=== PATIENT | female | born 1975 | race Two or more races ===

== ENCOUNTER 2025-01-26 16:04 | Inpatient (IN) | payer MEDICAID ==
[~2025-01-26] VITALS: Ht 160 cm; Wt 102.3 kg
[2025-01-26 16:45] LABS: Hematocrit 40.5 % (36.0-46.0); Hemoglobin 14.2 g/dL (12.2-16.2); Mean Corpuscular Hemoglobin 33.2 pg (28.0-32.0); Mean Corpuscular Volume 94.4 fL (80.0-100.0); Nucleated Red Blood Cells % 0.1 %
--- NOTE | 2025-01-26 16:52 | ED.PDOC ---
SOB-HPI HPI Comments 49-year-old female who presents to the ED with c/c of shortness of breath Patient was patient denies shortness of breath for the past 2 weeks Patient states she has been having difficulty difficulty laying down in her bed and has been unable to get a full night's sleep PCP saw PCP earlier today and state that she was referred to the ED for evaluation for CHF Patient of the ED states that she has been a type into see vaccines solutions specialist with state due to insurance problems she was unable disease specialist Patient in the ED had otherwise stable vitals Past medical history: Denies Past surgical history: Cholecystectomy, C-sections x5, knee surgery Medications: Denies Allergies: Acetaminophen, hydrocodone, penicillins Social history: denies ETOH denies tobacco use denies drug use REUM: SOB, PIT EDEMA 05/03 B/L ABNORMAL EKG HPI: Poor Historian. REVIEW OF SYSTEMS: CONSTITUTIONAL: Denies acute: fever, diaphoresis, chills, HEAD: Denies acute: headache, photophobia Eyes: Denies acute: Double vision, vision loss, eye pain, eye discharge. EARS: Denies acute: tinnitus, hearing loss, ear discharge, ear pain, THROAT: Denies acute: sore throat, swelling, difficulty swallowing , pain with swallowing, change in voice. NECK: Denies acute: neck pain, neck swelling, stiff neck. HEART: Denies acute : chest pain, palpitations, LUNGS: Denies acute: , wheezing, cough, hemoptysis ABDOMEN: Denies acute: abdominal pain, Nausea, Vomiting, diarrhea, melena , hematemesis, hematochezia SKIN: Denies acute: rash, redness, lesions, itchiness. EXTREMITIES: Denies acute: calf pain, numbness, tingling, weakness, denies pain in extremity. Denies acute: Low back pain. Neuro: Denies acute: focal neurological deficit, motor or sensory focal neurological deficit, tremors, seizure like activity, confusion, dizziness, change in mental status, loss of bowel or bladder function, cauda equina like symptoms. : Denies acute: dysuria, hematuria, flank pain, increase in urinary frequency. PSYCH: Denies acute: hallucination, suicidal ideation, homicidal ideation. FEMALE: Denies acute: abnormal vaginal bleeding, foul odor, unusual discharge. PHYSICAL EXAM: General: -----mild---acute distress, awake and alert. Head: normocephalic, atraumatic. Neck: supple, trachea is midline, no swelling. Throat: Normal phonation. Eyes:, no erythema, no purulent discharge, no proptosis, no icterus. Heart: regular rate, regular rhythm, no significant murmur appreciated. Lungs: no apparent respiratory distress, Able to speak in full sentences. No wheezing, no rhonchi, no crackles. No stridors Clear to auscultation bilaterally. Abdomen: non tender to palpation, non distended, soft, no guarding, no rebound, + bowel sounds. Neuro: Awake, Alert, oriented to name, self, situation, follows commands GCS=15. Speech is normal. Skin: no petechia, no purpura, no cyanosis, non-pale, not jaundice. Lower extremities: --trace bilateral- Pitting edema no deformity, no focal swelling, no calf TTP. Makes eye contact. moves all four extremities. Face: no apparent facial droop. Ambulating in the ED independently. ED COURSE: DISCLAIMER: This medical document was created using an electronic medical record system with voice recognition software and computerized dictation system. Although this document has been carefully reviewed, there might still be some phonetic and typographical errors. Occasional wrong-word or "sound-alike" substitutions may have occurred due to the inherent limitations of voice recognition software. These areas are purely typographical due to imperfections of the software programs and do not reflect any compromise in the patient's medical care. Please read the chart carefully and recognize, using context, where these substitutions have occurred. Chief Complaint: Shortness of Breath Time Seen by MD: 17:33 Reviewed notes: Medications, Allergies Information Source: Patient Mode of Arrival: Ambulatory Past Medical History PAST MEDICAL HISTORY: Denies Surgical History: Denies all surgeries EKG EKG : Pulse Rate (adult): 94 [place]: Normal Cardiac Rhythm: NSR Block: None Hypertrophy: None ST: Normal Comments T-wave inversions noted in leads 2 3 AVF V4 V5 V6 Was a procedure done? Was a procedure done?: No Differential Dx Differential Diagnosis: Other (DDx include ACS, unstable angina, anxiety, PE, pneumothroax, neoplasm, cardiac ischemia, COPD, asthma, CHF, pleural effusion, tobacco abuse, pneumonia, hypoxia, hypercapnia, anemia., infection/sepsis., pulmonary edema. Asthma, Cardiac tamponade, infection.) X-Ray, Labs, Meds, VS Vital Signs Date Time Temp Pulse Resp B/P (MAP) Pulse Ox O2 Delivery O2 Flow Rate FiO2 01/26/25 20:11 97.6 90 18 146/87 (106) 97 97.6 01/26/25 20:11 90 18 97 Room Air 01/26/25 17:49 94 01/26/25 16:16 94 01/26/25 16:05 98.5 99 16 118/80 98 98.5 Lab Test 01/26/25 18:06 01/26/25 17:38 01/26/25 16:31 Range/Units Troponin I High Sensitivity 3 L 3 L </=34 ng/L Blood Gas Specimen Type Arterial Blood Gas Sample Site Right radial Blood Gas Patient Temperature 37.0 Arterial Blood Date Drawn [id number] Arterial Blood pH 7.464 H 7.350-7.450 Arterial Blood Partial Pressure CO2 36.2 32.0-45.0 mmHg Arterial Blood Partial Pressure O2 76.1 L 83.0-108.0 mmHg Arterial Blood HCO3 25.4 21.0-28.0 mmol/L Arterial Blood Oxygen Saturation 95.9 94.0-98.0 % Arterial Blood Base Excess 1.9 -2.0-3.0 mmol/L Arterial Blood Oxyhemoglobin 94.7 94.0-98.0 % Arterial Blood Carboxyhemoglobin 0.8 0.5-1.5 % Arterial Blood Methemoglobin 0.4 0.0-1.5 % [facility] Test Modified Blood Gas Total Hemoglobin 14.70 12.0-16.0 g/dL Blood Gas Modality Room air FiO2 % 21.0 White Blood Count 8.5 4.4-10.8 10^3/uL Red Blood Count 4.29 4.0-5.20 10^6/uL Hemoglobin 14.2 12.2-16.2 g/dL Hematocrit 40.5 36.0-46.0 % Mean Corpuscular Volume 94.4 80.0-100.0 fL Mean Corpuscular Hemoglobin 33.2 H 28.0-32.0 pg Mean Corpuscular Hemoglobin Concent 35.2 32.0-36.0 g/dL Red Cell Distribution Width 14.0 11.8-14.3 % Platelet Count 371 140-450 10^3/uL Mean Platelet Volume 7.1 6.9-10.8 fL Neutrophils (%) (Auto) 60.4 37.0-80.0 % Lymphocytes (%) (Auto) 30.5 10.0-50.0 % Monocytes (%) (Auto) 5.7 0.0-12.0 % Eosinophils (%) (Auto) 2.9 0.0-7.0 % Basophils (%) (Auto) 0.5 0.0-2.0 % Neutrophils # (Auto) 5.2 1.6-8.6 10 ^3/uL Lymphocytes # (Auto) 2.6 0.4-5.4 10 ^3/uL Monocytes # (Auto) 0.5 0-1.3 10 ^3/uL Eosinophils # (Auto) 0.2 0-0.8 10 ^3/uL Basophils # (Auto) 0 0-0.2 10 ^3/uL Nucleated Red Blood Cells 0.1 % D-Dimer, Quantitative < 0.19 0.0-0.49 mg/L FEU Sodium Level 143 136-145 mmol/L Potassium Level 4.1 3.5-5.1 mmol/L Chloride Level 104 98-107 mmol/L Carbon Dioxide Level 30 20-31 mmol/L Anion Gap 9 5-15 Blood Urea Nitrogen 19 9-23 mg/dL Creatinine 0.79 0.550-1.02 mg/dL Glomerular Filtration Rate Calc 91 >90 mL/min BUN/Creatinine Ratio 24.1 H 10.0-20.0 Serum Glucose 108 H 74-106 mg/dL Calcium Level 9.4 8.7-10.4 mg/dL Total Bilirubin 0.9 0.2-1.0 mg/dL Aspartate Amino Transferase (AST) 18 13-40 U/L Alanine Aminotransferase (ALT) 28 7-40 U/L Alkaline Phosphatase 79 46-116 U/L B-Type Natriuretic Peptide 0.75 0-100 pg/mL Total Protein 7.2 5.7-8.2 g/dL Albumin 4.7 3.2-4.8 g/dL [facility] [id number] [facility] [address] Ph: [phone] DIAGNOSTIC IMAGING Diagnostic Imaging Report : [id number] Signed PATIENT: CARITO POLLOCK ACCT: [id number] UNIT: [id number] : 1975 LOC: ER ROOM / BED: / AGE / SEX: 49 / F ADM STATUS: REG ER SERVICE ORDERING PHYSICIAN: AHSAN HASTINGS DO PROCEDURE(s): CXRP - CHEST PORTABLE REASON: sob ORDER NUMBER(s): [id number], ACCESSION NUMBER(s): [id number] CHEST RADIOGRAPH Indication: sob Technique: Single frontal view of the chest was obtained Comparison: None FINDINGS: Lines and Tubes: None Lungs: No focal consolidation. Pleura: No effusion. No pneumothorax. Cardiomediastinal contours: Unremarkable Bones: No acute osseous abnormality. IMPRESSION: 1. No acute cardiopulmonary disease. ATED BY: RHEA TINAJERO Jr., DO DICTATED DATE/TIME: 01/26/251717 SIGNED BY: RHEA TINAJERO Jr., SIGNED DATE/TIME: 01/26/251717 CC: Time of 1ST Reevaluation: 20:38 Reevaluation 1ST: Improved Patient Education/Counseling: Diagnosis, Treatment Family Education/Counseling: No Family Present Comments MDM: patient presented with the above HPI.---dyspnea---workup was initiated. patient was found with the above mentioned diagnosis. the following medications were ordered: please refer to order lists of meds and tests obtained by myself Dr. Hastings. Patient ED course and VS have been stabilized. Patient has been reassessed in the ED and remained in a stable condition. Pertinent incidental findings were discussed with the patient and/or family. Patient/family voices understanding and is agreeable with plan. Patient has been observed in the ED adequate length of time to insure improvement/stability. Escalation of care considered: Consideration of escalation to observation or admission Patient was ADMITTED to the medicine team for further evaluation and treatment of their presentation. All the reports of any imaging studies that were ordered by myself were reviewed by myself. SEPSIS Sepsis Screen Date sepsis recognized/suspect: Jan 26, 2025 Time Sepsis recognized/suspect: 1607 Recent Procedure: No On Antibiotic Therapy: No Respiratory Rate >20: No Heart Rate >90: Yes Temp<36 C (96.8 F) or >38.3 C: No SBP <90 or MAP <65 mmHG: No New Acute Mental Status Change: No Is the patient on CPAP, BIPAP,: No Physician Orders Laboratory Technical Specialist (01/26/25 ) Chest Portable (01/26/25 16:18) Troponin-I Hs (01/26/25 19:18) Electrocardigram (01/26/25 16:23) Abg W/ Co-Ox (01/26/25 17:25) Vital Signs Date Time Temp Pulse Resp B/P (MAP) Pulse Ox O2 Delivery O2 Flow Rate FiO2 01/26/25 20:11 97.6 90 18 146/87 (106) 97 97.6 01/26/25 20:11 90 18 97 Room Air 01/26/25 17:49 94 01/26/25 16:16 94 01/26/25 16:05 98.5 99 16 118/80 98 98.5 Laboratory Tests Test 01/26/25 16:31 White Blood Count 8.5 10^3/uL (4.4-10.8) Departure 1 Departure Time of Disposition: 17:35 Impression: Primary Impression: Dyspnea Additional Impressions: Abnormal EKG Hypoxemia Disposition: ADMITTED INPATIENT Admit to: [facility] Condition: Guarded Discharged With: Self Critical Care Note Critical Care Time?: No Heart Score Heart Score: Heart Score Response (Comments) Value History Slightly Suspicious [address]-Deviation 2 Age 45-64 1 Risk Factors No known risk factors 0 Troponin Normal limit 0 Total 3 I personally scribed for AHSAN HASTINGS DO ([email or web address]) on 01/26/25 at 16:52. Electronically submitted by Aurea Lr ([facility] I personally scribed for AHSAN HASTINGS DO ([email or web address]) on 01/26/25 at 17:49. Electronically submitted by Aurea Lr ([facility]). AHSAN HASTINGS DO Jan 26, 2025 16:52
[2025-01-26 17:03] LABS: Alanine Aminotransferase 28 U/L (7-40); Albumin 4.7 g/dL (3.2-4.8); Alkaline Phosphatase 79 U/L (46-116); Anion Gap 9 (5-15); BUN/Creatinine Ratio 24.1 (10.0-20.0); Bilirubin, Total 0.9 mg/dL (0.2-1.0); Blood Urea Nitrogen 19 mg/dL (9-23); Calcium 9.4 mg/dL (8.7-10.4); Carbon Dioxide 30 mmol/L (20-31); Chloride 104 mmol/L (98-107); Potassium 4.1 mmol/L (3.5-5.1); Sodium 143 mmol/L (136-145); Total Protein 7.2 g/dL (5.7-8.2)
[2025-01-26 17:05] LABS: Glucose 108 mg/dL (74-106)
--- NOTE | 2025-01-26 17:20 | DVH ---
CHEST RADIOGRAPH Indication: sob Technique: Single frontal view of the chest was obtained Comparison: None FINDINGS: Lines and Tubes: None Lungs: No focal consolidation. Pleura: No effusion. No pneumothorax. Cardiomediastinal contours: Unremarkable Bones: No acute osseous abnormality. IMPRESSION: 1. No acute cardiopulmonary disease.
[2025-01-26 17:45] LABS: Base Excess 1.9 mmol/L (-2.0-3.0)
[2025-01-26 21:49] LABS: Lipase 28.0 U/L (12-53); Magnesium 2.2 mg/dL (1.6-2.6)
[2025-01-26 21:58] LABS: INR 0.95 (0.9-1.15); Partial Thromboplastin Time 26.4 SEC (24.5-34.5); Prothrombin Time 10.1 sec (9.3-11.8)
--- NOTE | 2025-01-26 23:27 | DVHHPRES ---
History of Present Illness Resident Creating Document: ROSALES SNYDER RESIDENT History of Present Illness This is a 49-year-old female with past medical history of gestational diabetes and heart failure 20 years back, presented to the ER with chief complain of shortness of breath. Patient reported difficulty in breathing since last 3 weeks, which increases on lying down and somewhat relieved on sitting up. She also complains of chest tightness since last 1 month, described as substernal and constant. She complains of associated difficulty in sleeping and nausea. Patient also reported diarrhea, since last 1 week, she had 8-9 episodes of bowel movements daily, foul-smelling stool, no blood seen. She also complained of abdominal distention, fullness and loss of appetite. Denies abdominal pain, fever, travel outside country, eating from food truck. PMHx: Gestational diabetes and questionable peripartum heart failure PSHx: 5 sections, cholecystectomy, hysterectomy due to endometriosis Social history: Occasional alcohol use. Methamphetamine use, reportedly quit 2 months ago. Lives in house with mother. Full code. Next of kin mother Home medication: Hydroxyzine Allergic history: Penicillin, Vicodin Patient was examined on bedside today. Vitals show tachycardia. Patient is admitted for further evaluation and management. Review of Systems Constitutional: Yes: Chills Respiratory: Shortness of breath, SOB with excertion Gastrointestinal: Nausea, Diarrhea Allergies: Coded Allergies: Acetaminophen (Verified Allergy, Unknown, 01/26/25) Hydrocodone (Verified Allergy, Unknown, 01/26/25) Penicillins (Verified Allergy, Unknown, 01/26/25) Exam Vital Signs Vital Signs Date Time Temp Pulse Resp B/P (MAP) Pulse Ox O2 Delivery O2 Flow Rate FiO2 01/26/25 20:11 97.6 90 18 146/87 (106) 97 97.6 01/26/25 20:11 Room Air Exam General: Patient alert and oriented in person, place and time. Patient following commands. HEENT: Normocephalic, atraumatic, moist mucous membranes Respiratory/pulmonary: Distant breath sounds, no crackles or wheeze heard Cardiovascular: S1, S2, S3 heard with no associated murmurs Abdomen: Mild abdominal distention, without tenderness. Extremities: There is no peripheral edema present at the lower extremities. Peripheral Pulses: 3+ Radial (R). 3+ Radial (L). 3+ Dorsalis pedis (R). 3+ Dorsalis pedis(L) Skin: No rashes or pruritus, there is no sacral edema present at this time. Neurological: Intact cranial nerves with no focal neurologic deficits Labs/Xrays Labs Test 01/26/25 20:40 01/26/25 17:38 01/26/25 16:31 Range/Units Prothrombin Time 10.1 9.3-11.8 sec Prothrombin Time INR 0.95 0.9-1.15 Activated Partial Thromboplast Time 26.4 24.5-34.5 SEC Troponin I High Sensitivity 3 L </=34 ng/L Blood Gas Specimen Type Arterial Blood Gas Sample Site Right radial Blood Gas Patient Temperature 37.0 Arterial Blood Date Drawn [id number] Arterial Blood pH 7.464 H 7.350-7.450 Arterial Blood Partial Pressure CO2 36.2 32.0-45.0 mmHg Arterial Blood Partial Pressure O2 76.1 L 83.0-108.0 mmHg Arterial Blood HCO3 25.4 21.0-28.0 mmol/L Arterial Blood Oxygen Saturation 95.9 94.0-98.0 % Arterial Blood Base Excess 1.9 -2.0-3.0 mmol/L Arterial Blood Oxyhemoglobin 94.7 94.0-98.0 % Arterial Blood Carboxyhemoglobin 0.8 0.5-1.5 % Arterial Blood Methemoglobin 0.4 0.0-1.5 % [place] Test Modified Blood Gas Total Hemoglobin 14.70 12.0-16.0 g/dL Blood Gas Modality Room air FiO2 % 21.0 White Blood Count 8.5 4.4-10.8 10^3/uL Red Blood Count 4.29 4.0-5.20 10^6/uL Hemoglobin 14.2 12.2-16.2 g/dL Hematocrit 40.5 36.0-46.0 % Mean Corpuscular Volume 94.4 80.0-100.0 fL Mean Corpuscular Hemoglobin 33.2 H 28.0-32.0 pg Mean Corpuscular Hemoglobin Concent 35.2 32.0-36.0 g/dL Red Cell Distribution Width 14.0 11.8-14.3 % Platelet Count 371 140-450 10^3/uL Mean Platelet Volume 7.1 6.9-10.8 fL Neutrophils (%) (Auto) 60.4 37.0-80.0 % Lymphocytes (%) (Auto) 30.5 10.0-50.0 % Monocytes (%) (Auto) 5.7 0.0-12.0 % Eosinophils (%) (Auto) 2.9 0.0-7.0 % Basophils (%) (Auto) 0.5 0.0-2.0 % Neutrophils # (Auto) 5.2 1.6-8.6 10 ^3/uL Lymphocytes # (Auto) 2.6 0.4-5.4 10 ^3/uL Monocytes # (Auto) 0.5 0-1.3 10 ^3/uL Eosinophils # (Auto) 0.2 0-0.8 10 ^3/uL Basophils # (Auto) 0 0-0.2 10 ^3/uL Nucleated Red Blood Cells 0.1 % D-Dimer, Quantitative < 0.19 0.0-0.49 mg/L FEU Sodium Level 143 136-145 mmol/L Potassium Level 4.1 3.5-5.1 mmol/L Chloride Level 104 98-107 mmol/L Carbon Dioxide Level 30 20-31 mmol/L Anion Gap 9 5-15 Blood Urea Nitrogen 19 9-23 mg/dL Creatinine 0.79 0.550-1.02 mg/dL Glomerular Filtration Rate Calc 91 >90 mL/min BUN/Creatinine Ratio 24.1 H 10.0-20.0 Serum Glucose 108 H 74-106 mg/dL Hemoglobin A1c 5.6 <5.7 % A1C Calcium Level 9.4 8.7-10.4 mg/dL Phosphorus Level 3.6 2.4-5.1 mg/dL Magnesium Level 2.2 1.6-2.6 mg/dL Total Bilirubin 0.9 0.2-1.0 mg/dL Aspartate Amino Transferase (AST) 18 13-40 U/L Alanine Aminotransferase (ALT) 28 7-40 U/L Alkaline Phosphatase 79 46-116 U/L C-Reactive Protein High Sensitivity 1.24 H <1.0 mg/dL B-Type Natriuretic Peptide 0.75 0-100 pg/mL Total Protein 7.2 5.7-8.2 g/dL Albumin 4.7 3.2-4.8 g/dL Lipase 28 12-53 U/L Vitamin B12 Level 269 211-911 pg/mL Vitamin D 25-Hydroxy 23.6 L 30.0-100 ng/mL Thyroid Stimulating Hormone (TSH) 3.98 0.55-4.78 uIU/mL SEPSIS Sepsis Screen Date sepsis recognized/suspect: Jan 26, 2025 Time Sepsis recognized/suspect: 1606 Recent Procedure: No On Antibiotic Therapy: No Respiratory Rate >20: No Heart Rate >90: Yes Temp<36 C (96.8 F) or >38.3 C: No SBP <90 or MAP <65 mmHG: No New Acute Mental Status Change: No Is the patient on CPAP, BIPAP,: No Physician Orders Home Attendant (01/26/25 ) Chest Portable (01/26/25 16:18) Electrocardigram (01/26/25 16:23) Abg W/ Co-Ox (01/26/25 17:25) Drug Screen (01/26/25 21:14) Urinalysis (01/26/25 21:14) Admit (01/26/25 23:19) Allergies (01/26/25 23:19) Code Status (01/26/25 23:19) Acetaminophen Tablet (Tylenol Tablet) (01/26/25 23:30) Ondansetron Hcl (Zofran) (01/26/25 23:30) Complete Blood Count (01/27/25 04:00) Comprehensive Metabolic Panel (01/27/25 04:00) Cardiac Diet-2gna,Lofat,Lochol (01/27/25 Breakfast) Echo 2d Mode Cardiac Dop (01/26/25 23:19) Condition: Serious (01/26/25 23:19) Morphine Sulfate Injection (01/26/25 23:30) Enoxaparin Sodium (Lovenox) (01/26/25 23:30) Oxygen By Nasal Cannula (01/26/25 23:19) Stat Ekg For Chest Pain (01/26/25 23:19) Notify Md Of Changes From Base (01/26/25 23:19) Straight Line Edger For 24 Hours (01/26/25 23:19) Emergency Dysrhythmia Protocol (01/26/25 23:19) Rhythm Strips Once Every Shift (01/26/25 23:19) Furosemide Injection (Lasix Injection) (01/26/25 23:30) Furosemide Injection (Lasix Injection) (01/27/25 10:00) Strict I&O (01/26/25 ) B-Type Natriuretic Peptide (01/26/25 23:19) Vital Signs Date Time Temp Pulse Resp B/P (MAP) Pulse Ox O2 Delivery O2 Flow Rate FiO2 01/26/25 20:11 97.6 90 18 146/87 (106) 97 97.6 01/26/25 20:11 90 18 97 Room Air 01/26/25 17:49 94 01/26/25 16:16 94 01/26/25 16:05 98.5 99 16 118/80 98 98.5 Laboratory Tests Test 01/26/25 16:31 White Blood Count 8.5 10^3/uL (4.4-10.8) Assessment/Plan Assessment/Plan Acute systolic vs diastolic heart failure, likely (pending LVEF) Questionable History of peripartum cardiomyopathy CXR shows no acute cardiopulmonary disease and no cardiomegaly Troponin WNL. Echo ordered BNP were WNL (may be false negative due to obesity) IV furosemide 20 mg daily; Patient is Lasix naive Acute gastroenteritis Holding off IV fluids and due to possible heart failure diagnosis Stool WBC, culture ordered IV ceftriaxone 1 g daily, IV metronidazole 500 mg 3 times daily Supportive treatment with morphine, acetaminophen, Zofran Monitor electrolytes, avoid opioids History of gestational diabetes mellitus A1c 5.6 Diabetes education Diabetic diet Hyperventilation likely due to obesity Respiratory alkalosis on ABG Morbid obesity Counseled on lifestyle and diet Monitor for JUSTINE complication, consider CPAP if needed DIET: Cardiac DVT PROPHYLAXIS: Lovenox GI PROPHYLAXIS: Protonix CODE STATUS: Goals of care discussed with patient, nurses at bedside for more than 36 minutes. Full code DISPOSITION: Telemetry Patient's status and plan discussed with the patient. Case discussed with Dr. Shaw Plan discussed with: Patient, Other (Nurses) My Orders Orders - ROSALES SNYDER RESIDENT Procedure Category Date Status Time Drug Screen LAB 01/26/25 Logged 21:14 Urinalysis LAB 01/26/25 Logged 21:14 Admit ADMIT 01/26/25 Transmitted 23:19 Allergies ANAHY 01/26/25 Transmitted 23:19 Code Status CODE 01/26/25 Transmitted 23:19 Acetaminophen Tablet PHA 01/26/25 Logged (Tylenol Tablet) 23:30 Ondansetron Hcl PHA 01/26/25 Logged (Zofran) 23:30 Complete Blood Count LAB 01/27/25 Verified 04:00 Comprehensive LAB 01/27/25 Verified Metabolic Panel 04:00 Cardiac DIET 01/27/25 Transmitted Diet-2gna,Lofat,Lochol Breakfast Echo 2d Mode Cardiac US 01/26/25 Logged DOP 23:19 Condition: Serious [facility] 01/26/25 Transmitted 23:19 Morphine Sulfate PHA 01/26/25 Logged Injection 23:30 Enoxaparin Sodium [facility] 01/26/25 Logged (Lovenox) 23:30 Oxygen By Nasal RT 01/26/25 Transmitted Cannula 23:19 Stat Ekg For Chest [facility] 01/26/25 Transmitted Pain 23:19 Notify Md Of Changes [facility] 01/26/25 Transmitted From Base 23:19 Straight Line Edger For [facility] 01/26/25 Transmitted 24 Hours 23:19 Emergency Dysrhythmia [facility] 01/26/25 Transmitted Protocol 23:19 Rhythm Strips Once [facility] 01/26/25 Transmitted Every Shift 23:19 Furosemide Injection [facility] 01/26/25 Logged (Lasix Injection) 23:30 Furosemide Injection [facility] 01/27/25 Logged (Lasix Injection) 10:00 Strict I&O ED NURSING 01/26/25 Transmitted B-Type Natriuretic LAB 01/26/25 Transmitted Peptide 23:19 Date of Service: Jan 26, 2025 Billing Provider: ANJUM DAY MD Common Visit Codes: 50217-[id number] INP/OBS CARE (HIGH) Secondary Visit Codes: [id number] CARE PLAN 30 MINUTES ROSALES SNYDER RESIDENT Jan 26, 2025 23:27 KERRI BOURGEOIS RESIDENT Jan 27, 2025 09:00
[2025-01-26] MEDS ORDERED: ACETAMINOPHEN 325 MG TAB PO PRN (23:30)
[2025-01-26] MEDS ORDERED: ONDANSETRON HCL 4 MG/2 ML VIAL IV PRN (23:30)
[2025-01-26] MEDS ORDERED: MORPHINE SULFATE INJ 2 MG/ml SYRG IV PRN (23:30)
[2025-01-27] VITALS (7 sets, daily range): BP systolic 115–134; BP diastolic 57–78; PULSE 71–92; RESP 16–18; TEMP 97–97.6; O2SAT 91–100
[2025-01-27] MEDS: FUROSEMIDE 20 MG/2 ML VIAL IV ONE (01:08)
[2025-01-27] MEDS: ENOXAPARIN SOD 40 MG/0.4 ML SYRINGE SC ONE (01:09)
--- NOTE | 2025-01-27 06:09 | ECG ---
[facility] Test Date: 2025-01-26 Test Time: 16:16:23 Pat Name: LAST POLLOCK Department: Room: [facility]1T A Gender: F [employer] Supervisor: GP : 1975 Requested By: AHSAN HASTINGS Order Number: [id number] Reading MD: Gurwinder Noonan Measurements Intervals Van Rate: 94 P: 21 CA: 136 QRS: 48 QRSD: 102 T: 230 QT: 307 QTc: 384 Interpretive Statements Sinus rhythm Ventricular premature complex Borderline repolarization abnormality Electronically Signed On 01-29-2025 22:06:56 PDT by Gurwinder Noonan Please click the below link to view image of tracing.
[2025-01-27] MEDS ORDERED: HYDR-3682 PO (07:34)
[2025-01-27] MEDS: FUROSEMIDE 20 MG/2 ML VIAL IV SCH (09:15)
[2025-01-27 11:13] LABS: Hematocrit 38.5 % (36.0-46.0); Hemoglobin 13.8 g/dL (12.2-16.2); Mean Corpuscular Hemoglobin 33.5 pg (28.0-32.0); Mean Corpuscular Volume 93.8 fL (80.0-100.0); Nucleated Red Blood Cells % 0.1 %
[2025-01-27 11:29] LABS: Alanine Aminotransferase 25 U/L (7-40); Albumin 4.7 g/dL (3.2-4.8); Alkaline Phosphatase 77 U/L (46-116); Anion Gap 9 (5-15); BUN/Creatinine Ratio 26.6 (10.0-20.0); Blood Urea Nitrogen 21 mg/dL (9-23); Calcium 9.6 mg/dL (8.7-10.4); Chloride 103 mmol/L (98-107); Potassium 4.1 mmol/L (3.5-5.1); Sodium 144 mmol/L (136-145); Total Protein 7.2 g/dL (5.7-8.2)
[2025-01-27 11:30] LABS: Bilirubin, Total 1.1 mg/dL (0.2-1.0)
[2025-01-27 11:35] LABS: Carbon Dioxide 32 mmol/L (20-31); Glucose 109 mg/dL (74-106)
[2025-01-27 12:02] LABS: Urine Protein, UAD Negative (Negative)
[2025-01-27 12:12] LABS: Amphetamine Screen, Urine Neg (NEGATIVE); Barbiturate Scree,Urine Neg (NEGATIVE); Benzodiazephine Screen, Urine Neg (NEGATIVE); Cannabinoid Screen, Urine Neg (NEGATIVE); Cocaine Screen, Urine Neg (NEGATIVE); Opiate Scree,Urine Neg (NEGATIVE); Phencyclidine Screen, Urine Neg (NEGATIVE)
[2025-01-27 12:43] LABS: COVID19 ANTIGEN SOFIA FIA NEGATIVE (NEGATIVE)
[2025-01-27 12:49] LABS: Triglycerides 155 mg/dL (< 150)
[2025-01-27 12:50] LABS: Cholesterol 224 mg/dL (< 200); HDL Cholesterol 60 mg/dL (40-59)
[2025-01-27] MEDS: ATORVASTATIN 20 MG TAB PO ONE (15:31)
[2025-01-27] MEDS: ERGOCALCIFEROL 50,000 UNIT(1.25MG) CAP PO SCH (15:31)
--- NOTE | 2025-01-27 17:26 | DVHPN2 ---
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 Patient reported difficulty in breathing since last 3 weeks, which increases on lying down and somewhat relieved on sitting up. She also complains of chest tightness since last 1 month, described as substernal and constant. She complains of associated difficulty in sleeping and nausea. Patient also reported diarrhea, since last 1 week, she had 8-9 episodes of bowel movements daily, foul-smelling stool, no blood seen. She also complained of abdominal distention, fullness and loss of appetite. Denies abdominal pain, fever, travel outside country, eating from food truck. patient also reported that she has been having difficulty with the sleeping and anxiety issues. Cardiology was consulted for evaluation of structural heart disease due to given patient's history and current presenting illness. 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 Methamphetamine use, smoker and vaping, reportedly quit 2 months ago. Lives in house with mother. Full code. Next of kin mother Home meds: Hydroxyzine Allergies: Penicillin, Vicodin Objective vital signs Vital Sign Date Time Temp Pulse Resp B/P (MAP) Pulse Ox O2 Delivery O2 Flow Rate FiO2 01/27/25 09:15 110/71 01/27/25 08:47 97.0 87 17 99 97.0 01/27/25 08:00 Room Air* 0 21 Total Intake and Output 01/26/25 01/26/25 01/27/25 15:00 23:00 07:00 Intake Total 150 ml Balance 150 ml medications Current Medications Medications Dose Ordered Sig/Edelmira Route Start Time Stop Time Status Last Admin Dose Admin Ondansetron HCl 4 mg Q4HP PRN IV 01/26/25 23:30 Enoxaparin Sodium 40 mg DAILY SC 01/28/25 10:00 Furosemide 20 mg DAILY IV 01/27/25 10:00 01/27/25 09:15 20 MG Ceftriaxone Sodium 50 ml @ 100 mls/hr DAILY@09 IV 01/27/25 03:30 01/27/25 05:21 100 MLS/HR Metronidazole 100 ml @ 100 mls/hr Q8HR IV 01/27/25 04:00 01/27/25 13:42 100 MLS/HR Morphine Sulfate 2 mg Q4HPRN PRN IV 01/27/25 13:45 Atorvastatin Calcium 40 mg HS PO 01/28/25 22:00 Ergocalciferol 50,000 unit Q7D PO 01/27/25 14:30 01/27/25 15:31 50,000 UNIT Examination General: Patient alert and oriented X3 HEENT: Normocephalic, atraumatic, moist mucous membranes Respiratory: Distant breath sounds, no crackles or wheeze heard Cardiovascular: S1, S2, S3 heard with no associated murmurs Abdomen: Mild abdominal distention, without tenderness. 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 Luis): Troponins and BNP within normal limit, UDS and lipid panel is pending Echocardiogram, pending Healthy lifestyle modifications including diet and exercise Recommended outpatient follow up with the Cardiology Rest of the management as per primary team Case discussed with Dr. Luis Thank you for allowing us to care for this patient Plan discussed with: Patient MAIKEL FERNANDEZJEROME RESIDENT Jan 27, 2025 17:26
--- NOTE | 2025-01-27 17:45 | DVHCONRES ---
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 Patient reported difficulty in breathing since last 3 weeks, which increases on lying down and somewhat relieved on sitting up. She also complains of chest tightness since last 1 month, described as substernal and constant. She complains of associated difficulty in sleeping and nausea. Patient also reported diarrhea, since last 1 week, she had 8-9 episodes of bowel movements daily, foul-smelling stool, no blood seen. She also complained of abdominal distention, fullness and loss of appetite. Denies abdominal pain, fever, travel outside country, eating from food truck. patient also reported that she has been having difficulty with the sleeping and anxiety issues. Cardiology was consulted for evaluation of structural heart disease due to given patient's history and current presenting illness. 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 Methamphetamine use, smoker and vaping, reportedly quit 2 months ago. Lives in house with mother. Full code. Next of kin mother Home meds: Hydroxyzine Allergies: Penicillin, Vicodin Family History: Patient reports no known family medical history. Allergies: Coded Allergies: Acetaminophen (Verified Allergy, Unknown, 01/26/25) Hydrocodone (Verified Allergy, Unknown, 01/26/25) Penicillins (Verified Allergy, Unknown, 01/26/25) Home Meds Reported Medications Hydroxyzine Hcl (Hydroxyzine Hcl) 25 Mg Tab, 25 MG PO HSPRN PRN for ANXIETY for 30 Days, MG 01/27/25 Current Medications Current Medications Medications (Trade) Dose Ordered Sig/Edelmira Route PRN Reason Start Time Stop Time Status Last Admin Acetaminophen (Tylenol Tablet) 325 mg Q4HP PRN PO MILD PAIN (1-3 PAIN SCALE) 01/26/25 23:30 01/27/25 02:29 DC Ondansetron HCl (Zofran) 4 mg Q4HP PRN IV NAUSEA / VOMITING 01/26/25 23:30 Morphine Sulfate 2 mg Q4HPRN PRN IV SEVERE PAIN (7-10 PAIN SCALE) 01/26/25 23:30 01/27/25 13:34 DC Enoxaparin Sodium (Lovenox) 40 mg DAILY SC 01/28/25 10:00 Furosemide (Lasix Injection) 20 mg DAILY IV 01/27/25 10:00 01/27/25 09:15 Ceftriaxone Sodium 50 ml @ 100 mls/hr DAILY@09 IV 01/27/25 03:30 01/27/25 05:21 Metronidazole 100 ml @ 100 mls/hr Q8HR IV 01/27/25 04:00 01/27/25 13:42 Morphine Sulfate 2 mg Q4HPRN PRN IV SEVERE PAIN (7-10 PAIN SCALE) 01/27/25 13:45 Atorvastatin Calcium (Lipitor) 40 mg HS PO 01/28/25 22:00 Ergocalciferol (Vitamin D 50,000 Unit) 50,000 unit Q7D PO 01/27/25 14:30 01/27/25 15:31 Vital Signs Vital Signs Date Time Temp Pulse Resp B/P (MAP) Pulse Ox O2 Delivery O2 Flow Rate FiO2 01/27/25 17:18 97.4 91 18 134/77 (96) 92 97.4 01/27/25 08:00 Room Air* 0 21 Physical Exam General: Patient alert and oriented X3 HEENT: Normocephalic, atraumatic, moist mucous membranes Respiratory: Distant breath sounds, no crackles or wheeze heard Cardiovascular: S1, S2, S3 heard with no associated murmurs Abdomen: Mild abdominal distention, without tenderness. Extremities: no edema, no cyanosis, no tenderness with a positive pulses Skin: no significant rash except for surgical scars Neurological: no sensory/ motor deficits Nurse was there as a monotype setter during the examination Labs/Diagnostic Data Labs Test 01/27/25 11:43 01/27/25 11:05 01/27/25 10:57 01/26/25 20:40 Range/Units Influenza Type A Antigen Negative Negative Influenza Type B Antigen Negative Negative SARS-CoV-2 Antigen (Rapid) Negative NEGATIVE Urine Color Colorless Yellow Urine Clarity Clear Clear Urine pH 7.0 5.0-9.0 Urine Specific [place] 1.006 1.001-1.035 Urine Protein Negative Negative Urine Ketones Negative Negative Urine Blood Negative Negative /uL Urine Nitrite Negative Negative Urine Bilirubin Negative Negative Urine Urobilinogen Normal Negative mg/dL Urine Leukocyte Esterase Negative Negative /uL Urine RBC 1 0 - 4 /hpf Urine Microscopic WBC < 1 0-5 /HPF Urine Squamous Epithelial Cells Few <5 /hpf Urine Bacteria None seen None Seen /hpf Urine Glucose Normal Normal mg/dL Urine Opiates Screen Neg NEGATIVE Urine Fentanyl Screen Neg NEGATIVE Urine Barbiturates Screen Neg NEGATIVE Urine Phencyclidine Screen Neg NEGATIVE Urine Amphetamines Screen Neg NEGATIVE Urine Benzodiazepines Screen Neg NEGATIVE Urine Cocaine Screen Neg NEGATIVE Urine Cannabinoids Screen Neg NEGATIVE White Blood Count 8.5 4.4-10.8 10^3/uL Red Blood Count 4.11 4.0-5.20 10^6/uL Hemoglobin 13.8 12.2-16.2 g/dL Hematocrit 38.5 36.0-46.0 % Mean Corpuscular Volume 93.8 80.0-100.0 fL Mean Corpuscular Hemoglobin 33.5 H 28.0-32.0 pg Mean Corpuscular Hemoglobin Concent 35.7 32.0-36.0 g/dL Red Cell Distribution Width 13.8 11.8-14.3 % Platelet Count 372 140-450 10^3/uL Mean Platelet Volume 7.3 6.9-10.8 fL Neutrophils (%) (Auto) 66.3 37.0-80.0 % Lymphocytes (%) (Auto) 24.9 10.0-50.0 % Monocytes (%) (Auto) 5.5 0.0-12.0 % Eosinophils (%) (Auto) 2.8 0.0-7.0 % Basophils (%) (Auto) 0.5 0.0-2.0 % Neutrophils # (Auto) 5.6 1.6-8.6 10 ^3/uL Lymphocytes # (Auto) 2.1 0.4-5.4 10 ^3/uL Monocytes # (Auto) 0.5 0-1.3 10 ^3/uL Eosinophils # (Auto) 0.2 0-0.8 10 ^3/uL Basophils # (Auto) 0 0-0.2 10 ^3/uL Nucleated Red Blood Cells 0.1 % Sodium Level 144 136-145 mmol/L Potassium Level 4.1 3.5-5.1 mmol/L Chloride Level 103 98-107 mmol/L Carbon Dioxide Level 32 H 20-31 mmol/L Anion Gap 9 5-15 Blood Urea Nitrogen 21 9-23 mg/dL Creatinine 0.79 0.550-1.02 mg/dL Glomerular Filtration Rate Calc 91 >90 mL/min BUN/Creatinine Ratio 26.6 H 10.0-20.0 Serum Glucose 109 H 74-106 mg/dL Calcium Level 9.6 8.7-10.4 mg/dL Total Bilirubin 1.1 H 0.2-1.0 mg/dL Aspartate Amino Transferase (AST) 18 13-40 U/L Alanine Aminotransferase (ALT) 25 7-40 U/L Alkaline Phosphatase 77 46-116 U/L B-Type Natriuretic Peptide 2.47 0-100 pg/mL Total Protein 7.2 5.7-8.2 g/dL Albumin 4.7 3.2-4.8 g/dL Triglycerides Level 155 H < 150 mg/dL Cholesterol Level 224 H < 200 mg/dL LDL Cholesterol 149 H < 100 mg/dL HDL Cholesterol 60 H 40-59 mg/dL Prothrombin Time 10.1 9.3-11.8 sec Prothrombin Time INR 0.95 0.9-1.15 Activated Partial Thromboplast Time 26.4 24.5-34.5 SEC Troponin I High Sensitivity 3 L </=34 ng/L Test 01/26/25 17:38 01/26/25 16:31 Range/Units Blood Gas Specimen Type Arterial Blood Gas Sample Site Right radial Blood Gas Patient Temperature 37.0 Arterial Blood Date Drawn [id number] Arterial Blood pH 7.464 H 7.350-7.450 Arterial Blood Partial Pressure CO2 36.2 32.0-45.0 mmHg Arterial Blood Partial Pressure O2 76.1 L 83.0-108.0 mmHg Arterial Blood HCO3 25.4 21.0-28.0 mmol/L Arterial Blood Oxygen Saturation 95.9 94.0-98.0 % Arterial Blood Base Excess 1.9 -2.0-3.0 mmol/L Arterial Blood Oxyhemoglobin 94.7 94.0-98.0 % Arterial Blood Carboxyhemoglobin 0.8 0.5-1.5 % Arterial Blood Methemoglobin 0.4 0.0-1.5 % [place] Test Modified Blood Gas Total Hemoglobin 14.70 12.0-16.0 g/dL Blood Gas Modality Room air FiO2 % 21.0 D-Dimer, Quantitative < 0.19 0.0-0.49 mg/L FEU Hemoglobin A1c 5.6 <5.7 % A1C Phosphorus Level 3.6 2.4-5.1 mg/dL Magnesium Level 2.2 1.6-2.6 mg/dL C-Reactive Protein High Sensitivity 1.24 H <1.0 mg/dL Lipase 28 12-53 U/L Vitamin B12 Level 269 211-911 pg/mL Vitamin D 25-Hydroxy 23.6 L 30.0-100 ng/mL Thyroid Stimulating Hormone (TSH) 3.98 0.55-4.78 uIU/mL Assessment Problem List/Assessment/Plan Assessment Rule out structural heart disease HX of heart failure 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 Luis): Troponins and BNP within normal limit, UDS and lipid panel is pending Echocardiogram, pending Healthy lifestyle modifications including diet and exercise Recommended outpatient follow up with the Cardiology Rest of the management as per primary team Case discussed with Dr. Luis Thank you for allowing us to care for this patient Plan discussed with: Patient NATHAN FERNANDEZ RESIDENT Jan 27, 2025 17:45
--- NOTE | 2025-01-27 19:28 | DVHPNRES ---
Progress Note Date Seen: Jan 27, 2025 Resident Creating Document: CHARLENEJOSE GUADALUPE RESIDENT Has the PT tested + for MRSA If YES, has PT been informed?: No Medical Necessity Reason Pt with a Central, PICC or Fol: No Subjective Review of Systems History of Present Illness This is a 49-year-old female with past medical history of gestational diabetes and heart failure 20 years back, presented to the ER with chief complain of shortness of breath. Patient reported difficulty in breathing since last 3 weeks, which increases on lying down and somewhat relieved on sitting up. She also complains of chest tightness since last 1 month, described as substernal and constant. She complains of associated difficulty in sleeping and nausea. Patient also reported diarrhea, since last 1 week, she had 8-9 episodes of bowel movements daily, foul-smelling stool, no blood seen. She also complained of abdominal distention, fullness and loss of appetite. Denies abdominal pain, fever, travel outside country, eating from food truck. PMHx: Gestational diabetes and questionable peripartum heart failure PSHx: 5 sections, cholecystectomy, hysterectomy due to endometriosis Social history: Occasional alcohol use. Methamphetamine use, reportedly quit 2 months ago. Lives in house with mother. Full code. Next of kin mother Home medication: Hydroxyzine Allergic history: Penicillin, Vicodin Patient was examined on bedside today. The patient reports having chest tightness, shortness of breaths, orthopnea, palpitations. No new complaints reported. Objective vital signs Vital Sign Date Time Temp Pulse Resp B/P (MAP) Pulse Ox O2 Delivery O2 Flow Rate FiO2 01/27/25 17:18 97.4 91 18 134/77 (96) 92 97.4 01/27/25 08:00 Room Air* 0 21 Total Intake and Output 01/26/25 01/26/25 01/27/25 15:00 23:00 07:00 Intake Total 150 ml Balance 150 ml medications Current Medications Medications Dose Ordered Sig/Edelmira Route Start Time Stop Time Status Last Admin Dose Admin Ondansetron HCl 4 mg Q4HP PRN IV 01/26/25 23:30 Enoxaparin Sodium 40 mg DAILY SC 01/28/25 10:00 Furosemide 20 mg DAILY IV 01/27/25 10:00 01/27/25 09:15 20 MG Ceftriaxone Sodium 50 ml @ 100 mls/hr DAILY@09 IV 01/27/25 03:30 01/27/25 05:21 100 MLS/HR Metronidazole 100 ml @ 100 mls/hr Q8HR IV 01/27/25 04:00 01/27/25 13:42 100 MLS/HR Morphine Sulfate 2 mg Q4HPRN PRN IV 01/27/25 13:45 Atorvastatin Calcium 40 mg HS PO 01/28/25 22:00 Ergocalciferol 50,000 unit Q7D PO 01/27/25 14:30 01/27/25 15:31 50,000 UNIT Examination Pt is lying on bed General Appearance: Alert, Oriented X3, Cooperative, Mild distress HEENT: Atraumatic, Mucous membranes moist/pink Respiratory: Clear to auscultation, Normal air movement, No added sounds Cardiovascular: Regular rate, Normal S1, Normal S2, No murmurs Abdominal/ : Active bowel sounds, Soft, no distention, no tenderness Extremities: No edema, Normal pulses, No tenderness/swelling Skin: No Significant rash, except past surgical scars Neuro: Normal speech, sensorimotor deficits none Psych/Mental Status: Mental status NL, Mood NL Nurse was there as nitroglycerin neutralizer during examination laboratory and microbiology Laboratory Tests 01/27/25 10:57 Test 01/27/25 10:57 Range/Units Serum Glucose 109 H 74-106 mg/dL Labs and/or images reviewed: Labs reviewed by me, Image(s) reviewed by me Problem List/Assessment/Plan Problem List/Assessment/Plan Acute systolic vs diastolic heart failure, likely (pending LVEF) Questionable History of peripartum cardiomyopathy CXR shows no acute cardiopulmonary disease and no cardiomegaly Troponin WNL. Echo completed, results pending BNP were WNL (may be false negative due to obesity) IV furosemide 20 mg daily; Patient is Lasix naive Cardiology consultation appreciated: Recommended outpatient follow up Acute gastroenteritis Holding off IV fluids and due to possible heart failure diagnosis Stool WBC, culture ordered Stool C diff ordered IV ceftriaxone 1 g daily, IV metronidazole 500 mg 3 times daily Supportive treatment with morphine, acetaminophen, Zofran Monitor electrolytes, avoid opioids Hyperglycemia Remote history of GDM A1c 5.6 Diabetes education Diabetic diet Hyperventilation likely due to obesity Respiratory alkalosis on ABG Morbid obesity Counseled on lifestyle and diet Monitor for JUSTINE complication, consider CPAP if needed Vitamin-D deficiency Supplemented DIET: Cardiac DVT PROPHYLAXIS: Lovenox GI PROPHYLAXIS: Protonix CODE STATUS: Goals of care discussed with patient, nurses at bedside for more than 36 minutes. Full code DISPOSITION: Telemetry Case discussed with , Dr. Adan, Dr. Rice, RN and the patient Plan discussed with: Patient, Other My Orders My Orders Orders - JOSE GUADALUPE CHANG RESIDENT Procedure Category Date Status Time * Cardiology Consult CONS 01/27/25 Transmitted 14:22 Atorvastatin (Lipitor) PHA 01/28/25 In Process 22:00 Ergocalciferol PHA 01/27/25 In Process (Vitamin D 50,000 14:30 Clostridium Difficile LAUREANO 01/27/25 Uncollected Toxin 15:48 Date of Service: Jan 27, 2025 Billing Provider: RADHA BEGUM MD Common Visit Codes: [id number] INP/OBS CARE(HIGH) Secondary Visit Codes: 99307-[id number] CARE PLAN 30 MINUTES JOSE GUADALUPE CHANG Jan 27, 2025 19:28 RADHA BEGUM MD Feb 02, 2025 20:11
[2025-01-27] MEDS: MORPHINE SULFATE 4 MG/ML SYR/VIAL IV PRN (21:07)
--- NOTE | 2025-01-27 23:22 | DVHINCON2 ---
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 Patient reported difficulty in breathing since last 3 weeks, which increases on lying down and somewhat relieved on sitting up. She also complains of chest tightness since last 1 month, described as substernal and constant. She complains of associated difficulty in sleeping and nausea. Patient also reported diarrhea, since last 1 week, she had 8-9 episodes of bowel movements daily, foul-smelling stool, no blood seen. She also complained of abdominal distention, fullness and loss of appetite. Denies abdominal pain, fever, travel outside country, eating from food truck. patient also reported that she has been having difficulty with the sleeping and anxiety issues. Cardiology was consulted for evaluation of structural heart disease due to given patient's history and current presenting illness. 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 Methamphetamine use, smoker and vaping, reportedly quit 2 months ago. Lives in house with mother. Full code. Next of kin mother Home meds: Hydroxyzine Allergies: Penicillin, Vicodin Family History: Patient reports no known family medical history. Allergies: Coded Allergies: Acetaminophen (Verified Allergy, Unknown, 01/26/25) Hydrocodone (Verified Allergy, Unknown, 01/26/25) Penicillins (Verified Allergy, Unknown, 01/26/25) Home Meds Reported Medications Hydroxyzine Hcl (Hydroxyzine Hcl) 25 Mg Tab, 25 MG PO HSPRN PRN for ANXIETY for 30 Days, MG 01/27/25 Current Medications Current Medications Medications (Trade) Dose Ordered Sig/Edelmira Route PRN Reason Start Time Stop Time Status Last Admin Acetaminophen (Tylenol Tablet) 325 mg Q4HP PRN PO MILD PAIN (1-3 PAIN SCALE) 01/26/25 23:30 01/27/25 02:29 DC Ondansetron HCl (Zofran) 4 mg Q4HP PRN IV NAUSEA / VOMITING 01/26/25 23:30 Morphine Sulfate 2 mg Q4HPRN PRN IV SEVERE PAIN (7-10 PAIN SCALE) 01/26/25 23:30 01/27/25 13:34 DC Enoxaparin Sodium (Lovenox) 40 mg DAILY SC 01/28/25 10:00 Furosemide (Lasix Injection) 20 mg DAILY IV 01/27/25 10:00 01/27/25 09:15 Ceftriaxone Sodium 50 ml @ 100 mls/hr DAILY@09 IV 01/27/25 03:30 01/27/25 05:21 Metronidazole 100 ml @ 100 mls/hr Q8HR IV 01/27/25 04:00 01/27/25 21:04 Morphine Sulfate 2 mg Q4HPRN PRN IV SEVERE PAIN (7-10 PAIN SCALE) 01/27/25 13:45 01/27/25 21:07 Atorvastatin Calcium (Lipitor) 40 mg HS PO 01/28/25 22:00 Ergocalciferol (Vitamin D 50,000 Unit) 50,000 unit Q7D PO 01/27/25 14:30 01/27/25 15:31 Review of Systems CONSTITUTIONAL: Denies acute: fever, diaphoresis, chills, HEAD: Denies acute: headache, photophobia Eyes: Denies acute: Double vision, vision loss, eye pain, eye discharge. EARS: Denies acute: tinnitus, hearing loss, ear discharge, ear pain, THROAT: Denies acute: sore throat, swelling, difficulty swallowing , pain with swallowing, change in voice. NECK: Denies acute: neck pain, neck swelling, stiff neck. HEART: Denies acute : chest pain, palpitations, LUNGS: Denies acute: , wheezing, cough, hemoptysis ABDOMEN: Denies acute: abdominal pain, Nausea, Vomiting, diarrhea, melena , hematemesis, hematochezia SKIN: Denies acute: rash, redness, lesions, itchiness. EXTREMITIES: Denies acute: calf pain, numbness, tingling, weakness, denies pain in extremity. Denies acute: Low back pain. Neuro: Denies acute: focal neurological deficit, motor or sensory focal neurological deficit, tremors, seizure like activity, confusion, dizziness, change in mental status, loss of bowel or bladder function, cauda equina like symptoms. : Denies acute: dysuria, hematuria, flank pain, increase in urinary frequency. PSYCH: Denies acute: hallucination, suicidal ideation, homicidal ideation. Vital Signs Vital Signs Date Time Temp Pulse Resp B/P (MAP) Pulse Ox O2 Delivery O2 Flow Rate FiO2 01/27/25 21:07 68 16 112/65 01/27/25 21:00 97.3 91 97.3 01/27/25 20:00 Room Air* 0 21 Physical Exam General: Patient alert and oriented X3 HEENT: Normocephalic, atraumatic, moist mucous membranes Respiratory: Distant breath sounds, no crackles or wheeze heard Cardiovascular: S1, S2, S3 heard with no associated murmurs Abdomen: Mild abdominal distention, without tenderness. Extremities: no edema, no cyanosis, no tenderness with a positive pulses Skin: no significant rash except for surgical scars Neurological: no sensory/ motor deficits Nurse was there as a floor assembler during the examination Labs/Diagnostic Data Labs Test 01/27/25 11:43 01/27/25 11:05 01/27/25 10:57 01/26/25 20:40 Range/Units Influenza Type A Antigen Negative Negative Influenza Type B Antigen Negative Negative SARS-CoV-2 Antigen (Rapid) Negative NEGATIVE Urine Color Colorless Yellow Urine Clarity Clear Clear Urine pH 7.0 5.0-9.0 Urine Specific [place] 1.006 1.001-1.035 Urine Protein Negative Negative Urine Ketones Negative Negative Urine Blood Negative Negative /uL Urine Nitrite Negative Negative Urine Bilirubin Negative Negative Urine Urobilinogen Normal Negative mg/dL Urine Leukocyte Esterase Negative Negative /uL Urine RBC 1 0 - 4 /hpf Urine Microscopic WBC < 1 0-5 /HPF Urine Squamous Epithelial Cells Few <5 /hpf Urine Bacteria None seen None Seen /hpf Urine Glucose Normal Normal mg/dL Urine Opiates Screen Neg NEGATIVE Urine Fentanyl Screen Neg NEGATIVE Urine Barbiturates Screen Neg NEGATIVE Urine Phencyclidine Screen Neg NEGATIVE Urine Amphetamines Screen Neg NEGATIVE Urine Benzodiazepines Screen Neg NEGATIVE Urine Cocaine Screen Neg NEGATIVE Urine Cannabinoids Screen Neg NEGATIVE White Blood Count 8.5 4.4-10.8 10^3/uL Red Blood Count 4.11 4.0-5.20 10^6/uL Hemoglobin 13.8 12.2-16.2 g/dL Hematocrit 38.5 36.0-46.0 % Mean Corpuscular Volume 93.8 80.0-100.0 fL Mean Corpuscular Hemoglobin 33.5 H 28.0-32.0 pg Mean Corpuscular Hemoglobin Concent 35.7 32.0-36.0 g/dL Red Cell Distribution Width 13.8 11.8-14.3 % Platelet Count 372 140-450 10^3/uL Mean Platelet Volume 7.3 6.9-10.8 fL Neutrophils (%) (Auto) 66.3 37.0-80.0 % Lymphocytes (%) (Auto) 24.9 10.0-50.0 % Monocytes (%) (Auto) 5.5 0.0-12.0 % Eosinophils (%) (Auto) 2.8 0.0-7.0 % Basophils (%) (Auto) 0.5 0.0-2.0 % Neutrophils # (Auto) 5.6 1.6-8.6 10 ^3/uL Lymphocytes # (Auto) 2.1 0.4-5.4 10 ^3/uL Monocytes # (Auto) 0.5 0-1.3 10 ^3/uL Eosinophils # (Auto) 0.2 0-0.8 10 ^3/uL Basophils # (Auto) 0 0-0.2 10 ^3/uL Nucleated Red Blood Cells 0.1 % Sodium Level 144 136-145 mmol/L Potassium Level 4.1 3.5-5.1 mmol/L Chloride Level 103 98-107 mmol/L Carbon Dioxide Level 32 H 20-31 mmol/L Anion Gap 9 5-15 Blood Urea Nitrogen 21 9-23 mg/dL Creatinine 0.79 0.550-1.02 mg/dL Glomerular Filtration Rate Calc 91 >90 mL/min BUN/Creatinine Ratio 26.6 H 10.0-20.0 Serum Glucose 109 H 74-106 mg/dL Calcium Level 9.6 8.7-10.4 mg/dL Total Bilirubin 1.1 H 0.2-1.0 mg/dL Aspartate Amino Transferase (AST) 18 13-40 U/L Alanine Aminotransferase (ALT) 25 7-40 U/L Alkaline Phosphatase 77 46-116 U/L B-Type Natriuretic Peptide 2.47 0-100 pg/mL Total Protein 7.2 5.7-8.2 g/dL Albumin 4.7 3.2-4.8 g/dL Triglycerides Level 155 H < 150 mg/dL Cholesterol Level 224 H < 200 mg/dL LDL Cholesterol 149 H < 100 mg/dL HDL Cholesterol 60 H 40-59 mg/dL Prothrombin Time 10.1 9.3-11.8 sec Prothrombin Time INR 0.95 0.9-1.15 Activated Partial Thromboplast Time 26.4 24.5-34.5 SEC Troponin I High Sensitivity 3 L </=34 ng/L Test 01/26/25 17:38 01/26/25 16:31 Range/Units Blood Gas Specimen Type Arterial Blood Gas Sample Site Right radial Blood Gas Patient Temperature 37.0 Arterial Blood Date Drawn [id number] Arterial Blood pH 7.464 H 7.350-7.450 Arterial Blood Partial Pressure CO2 36.2 32.0-45.0 mmHg Arterial Blood Partial Pressure O2 76.1 L 83.0-108.0 mmHg Arterial Blood HCO3 25.4 21.0-28.0 mmol/L Arterial Blood Oxygen Saturation 95.9 94.0-98.0 % Arterial Blood Base Excess 1.9 -2.0-3.0 mmol/L Arterial Blood Oxyhemoglobin 94.7 94.0-98.0 % Arterial Blood Carboxyhemoglobin 0.8 0.5-1.5 % Arterial Blood Methemoglobin 0.4 0.0-1.5 % [place] Test Modified Blood Gas Total Hemoglobin 14.70 12.0-16.0 g/dL Blood Gas Modality Room air FiO2 % 21.0 D-Dimer, Quantitative < 0.19 0.0-0.49 mg/L FEU Hemoglobin A1c 5.6 <5.7 % A1C Phosphorus Level 3.6 2.4-5.1 mg/dL Magnesium Level 2.2 1.6-2.6 mg/dL C-Reactive Protein High Sensitivity 1.24 H <1.0 mg/dL Lipase 28 12-53 U/L Vitamin B12 Level 269 211-911 pg/mL Vitamin D 25-Hydroxy 23.6 L 30.0-100 ng/mL Thyroid Stimulating Hormone (TSH) 3.98 0.55-4.78 uIU/mL Assessment Rule out structural heart disease. 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 Morbid obesity. Acute gastroenteritis. HX of gestational DM, A1c is 5.6. Plan/Recommendation I agree with your ongoing assessment and care of plan. Patient has been seen by Ree Schmidt, Resident on my behalf. We have discussed the plan with the patient. Troponins and BNP within normal limit, UDS and lipid panel is pending. Echocardiogram, pending. Healthy lifestyle modifications including diet and exercise. Recommended outpatient follow up with the Cardiology. Rest of the management as per primary team. Additional plan as per the hospital course. Plan discussed with: Patient ASHLEY MCDONNELL MD Jan 27, 2025 23:22
--- NOTE | 2025-01-27 23:24 | DVHPN2 ---
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 Patient reported difficulty in breathing since last 3 weeks, which increases on lying down and somewhat relieved on sitting up. She also complains of chest tightness since last 1 month, described as substernal and constant. She complains of associated difficulty in sleeping and nausea. Patient also reported diarrhea, since last 1 week, she had 8-9 episodes of bowel movements daily, foul-smelling stool, no blood seen. She also complained of abdominal distention, fullness and loss of appetite. Denies abdominal pain, fever, travel outside country, eating from food truck. patient also reported that she has been having difficulty with the sleeping and anxiety issues. Cardiology was consulted for evaluation of structural heart disease due to given patient's history and current presenting illness. 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 Methamphetamine use, smoker and vaping, reportedly quit 2 months ago. Lives in house with mother. Full code. Next of kin mother Home meds: Hydroxyzine Allergies: Penicillin, Vicodin vital signs Vital Sign Date Time Temp Pulse Resp B/P (MAP) Pulse Ox O2 Delivery O2 Flow Rate FiO2 01/27/25 21:07 68 16 112/65 01/27/25 21:00 97.3 91 97.3 01/27/25 20:00 Room Air* 0 21 Total Intake and Output 01/26/25 01/26/25 01/27/25 15:00 23:00 07:00 Intake Total 150 ml Balance 150 ml medications Current Medications Medications Dose Ordered Sig/Edelmira Route Start Time Stop Time Status Last Admin Dose Admin Ondansetron HCl 4 mg Q4HP PRN IV 01/26/25 23:30 Enoxaparin Sodium 40 mg DAILY SC 01/28/25 10:00 Furosemide 20 mg DAILY IV 01/27/25 10:00 01/27/25 09:15 Ceftriaxone Sodium 50 ml @ 100 mls/hr DAILY@09 IV 01/27/25 03:30 01/27/25 05:21 Metronidazole 100 ml @ 100 mls/hr Q8HR IV 01/27/25 04:00 01/27/25 21:04 Morphine Sulfate 2 mg Q4HPRN PRN IV 01/27/25 13:45 01/27/25 21:07 Atorvastatin Calcium 40 mg HS PO 01/28/25 22:00 Ergocalciferol 50,000 unit Q7D PO 01/27/25 14:30 01/27/25 15:31 objective General: Patient alert and oriented X3 HEENT: Normocephalic, atraumatic, moist mucous membranes Respiratory: Distant breath sounds, no crackles or wheeze heard Cardiovascular: S1, S2, S3 heard with no associated murmurs Abdomen: Mild abdominal distention, without tenderness. Extremities: no edema, no cyanosis, no tenderness with a positive pulses Skin: no significant rash except for surgical scars Neurological: no sensory/ motor deficits Nurse was there as a manager custom during the examination laboratory and microbiology Laboratory Tests 01/27/25 10:57 Test 01/27/25 10:57 Range/Units Serum Glucose 109 H 74-106 mg/dL Problem List Rule out structural heart disease. 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 Morbid obesity. Acute gastroenteritis. HX of gestational DM, A1c is 5.6. Assessment/Plan Continued all current supportive medical care. Patient has been seen by Ree Schmidt, Resident on my behalf. We have discussed the plan with the patient. Echocardiogram, pending. Healthy lifestyle modifications including diet and exercise. Recommended outpatient follow up with the Cardiology. Rest of the management as per primary team. Additional plan as per the hospital course. Plan discussed with: Patient ASHLEY MCDONNELL MD Jan 27, 2025 23:24
[2025-01-28 01:00] VITALS: BP 112/72; PULSE 85; RESP 16; TEMP 97.9; O2SAT 93
[2025-01-28 05:00] VITALS: BP 126/69; PULSE 80; RESP 14; TEMP 98; O2SAT 91
[2025-01-28 07:40] LABS: Hematocrit 37.3 % (36.0-46.0); Hemoglobin 13.0 g/dL (12.2-16.2); Mean Corpuscular Hemoglobin 33.2 pg (28.0-32.0); Mean Corpuscular Volume 95.4 fL (80.0-100.0); Nucleated Red Blood Cells % 0.0 %
--- NOTE | 2025-01-28 07:49 | DVHSR ---
APPROVED REPORT EXAM: Two-dimensional and M-mode echocardiogram with Doppler and color Doppler. Blood Pressure: 118/57 mmHg INDICATION SOB, orthopnea RISK FACTORS Height: 63, Weight: 225 DIMENSIONS LVDd4.2 (3.8-5.7cm)LA (2D)3.4 (1.9-4.0cm)Aortic Root3.1 (2.0-3.7cm) LVDs2.8 (2.5-4.0cm)LA (MM) (1.9-4.0cm)Aortic Cusp Exc1.7 (1.5-2.0cm) EF (%) 61.0 (55-70%)Rt. Atrium3.2 (1.9-4.0cm)Asc. Aorta cm Mitral Valve MitralMitral Stenosis E wave0.55m/sMV Mean GR.mmHg A wave0.82m/sMV Peak GR.mmHg E/A ratio0.72D MVAcm2 DECEL [id number] 1/2 [id number] IVRTmsDop MVA3.42cm2 Aortic Valve Aortic ValveAortic Stenosis V11.28m/Antonio Mean GR.4mmHg V21.30m/Antonio Peak GR.7mmHg LVOT Diameter1.8 (1.8-2.4cm)Doppler AVA2.50cm2 Pulmonic Valve V21.03m/s Other Information Technically limited study due to body habitus. Conclusion lvef 60% borderline LVH normal rv function normal atria no severe valve abnormalities noted
[2025-01-28 07:50] LABS: Anion Gap 9 (5-15); Calcium 9.1 mg/dL (8.7-10.4); Carbon Dioxide 27 mmol/L (20-31); Chloride 106 mmol/L (98-107); Potassium 4.0 mmol/L (3.5-5.1); Sodium 142 mmol/L (136-145)
[2025-01-28 07:56] LABS: BUN/Creatinine Ratio 35.1 (10.0-20.0)
[2025-01-28 08:00] VITALS: PULSE 96
[2025-01-28 08:05] LABS: Blood Urea Nitrogen 27 mg/dL (9-23); Glucose 119 mg/dL (74-106)
[2025-01-28 09:09] VITALS: BP 119/77; PULSE 75; RESP 17; TEMP 97.6; O2SAT 93
[2025-01-28] MEDS: ENOXAPARIN SOD 40 MG/0.4 ML SYRINGE SC SCH (09:33)
[2025-01-28 11:13] LABS: Hepatitis B Surface Antigen Negative (Negative); Hepatitis C Antibody Negative (Negative)
--- NOTE | 2025-01-28 12:54 | DVH ---
Procedure: CT CHEST WITHOUT CONTRAST Reason for study/Clinical History: SOB, h/o meth use Comparison Study: None Exam Date: 01/28/2025 10:44 AM TECHNIQUE: Multidetector CT of the chest was performed from the lung apices to the upper abdomen with out the use of intravenous contract. Axial, coronal and sagittal multiplanar reformats were performed . Radiation Dose Information: CT Dose: CTDI volume is 17.89 mGy. Dose-length product is 2.54 mGy*cm The dose indicators for CT are the volume Computed Tomography (CT) Dose Index (CTDIvol) and the Dose Length Product (DLP), and are measured in units of mGy and mGy-cm, respectively. These indicators are not patient dose, but values generated from the CT scanner acquisition factors. The report includes radiation exposure data for exposures received during this examination. FINDINGS: Lower neck: Normal thyroid. Lungs: 9.8 mm nodule left lower lobe. Nodule has a volume of 488 0.1 mm cubed. Lung-RADS= 4A suspicious. Recommend 3-month LD CT ; PET scan CT may be used lesion is equal to or gre ater than 8 mm. Heart/Vascular Structures: Normal heart size. No pericardial effusion. Lymph Nodes: No adenopathy Pleura: No pleural effusion or significant pneumothorax. Musculoskeletal: No acute osseous abnormality. Soft tissues: Normal. Upper abdomen: Limited portions of the upper abdomen are unremarkable. IMPRESSION: 1. Solitary 9.8 mm nodule left lower lobe. 2. Lung rads 4A, BISMARK=(<= -950HU) 0% 3. According to Fleischner society statement there is no significant emphysema FL AA less than 6% 4. CT protocol is not optimized or LA analysis. Do not rely on LA a -950 HU values for diagnosis. HS:Y Radiation optimization: All CT scans at this facility use at least one of these dose optimization gagandeep hniques: automated exposure control mA and/or kV adjustment per patient size (includes targeted exam s where dose is matched to clinical indication) or iterative reconstruction.
[2025-01-28 13:30] VITALS: BP 90/56; PULSE 92; RESP 18; TEMP 99.1; O2SAT 95
--- NOTE | 2025-01-28 13:45 | DVHDSRES ---
Discharge Summary Date of Admission Resident Creating Document: JOSE GUADALUPE CHANG RESIDENT Jan 26, 2025 at 23:19 Date of Discharge: Jan 28, 2025 Admitting Diagnosis Acute exacerbation of systolic heart failure Labs/Diagnostic Data: Laboratory Results Test 01/28/25 06:26 01/27/25 11:43 01/27/25 11:05 01/27/25 10:57 White Blood Count 6.3 10^3/uL (4.4-10.8) Red Blood Count 3.91 10^6/uL (4.0-5.20) Hemoglobin 13.0 g/dL (12.2-16.2) Hematocrit 37.3 % (36.0-46.0) Mean Corpuscular Volume 95.4 fL (80.0-100.0) Mean Corpuscular Hemoglobin 33.2 pg (28.0-32.0) Mean Corpuscular Hemoglobin Concent 34.8 g/dL (32.0-36.0) Red Cell Distribution Width 13.6 % (11.8-14.3) Platelet Count 330 10^3/uL (140-450) Mean Platelet Volume 7.6 fL (6.9-10.8) Neutrophils (%) (Auto) 54.4 % (37.0-80.0) Lymphocytes (%) (Auto) 33.8 % (10.0-50.0) Monocytes (%) (Auto) 7.0 % (0.0-12.0) Eosinophils (%) (Auto) 4.2 % (0.0-7.0) Basophils (%) (Auto) 0.6 % (0.0-2.0) Neutrophils # (Auto) 3.4 10 ^3/uL (1.6-8.6) Lymphocytes # (Auto) 2.1 10 ^3/uL (0.4-5.4) Monocytes # (Auto) 0.4 10 ^3/uL (0-1.3) Eosinophils # (Auto) 0.3 10 ^3/uL (0-0.8) Basophils # (Auto) 0 10 ^3/uL (0-0.2) Nucleated Red Blood Cells 0.0 % Sodium Level 142 mmol/L (136-145) Potassium Level 4.0 mmol/L (3.5-5.1) Chloride Level 106 mmol/L (98-107) Carbon Dioxide Level 27 mmol/L (20-31) Anion Gap 9 (5-15) Blood Urea Nitrogen 27 mg/dL (9-23) Creatinine 0.77 mg/dL (0.550-1.02) Glomerular Filtration Rate Calc 94 mL/min (>90) BUN/Creatinine Ratio 35.1 (10.0-20.0) Serum Glucose 119 mg/dL (74-106) Calcium Level 9.1 mg/dL (8.7-10.4) Influenza Type A Antigen Negative (Negative) Influenza Type B Antigen Negative (Negative) SARS-CoV-2 Antigen (Rapid) Negative (NEGATIVE) Urine Color Colorless (Yellow) Urine Clarity Clear (Clear) Urine pH 7.0 (5.0-9.0) Urine Specific [place] 1.006 (1.001-1.035) Urine Protein Negative (Negative) Urine Ketones Negative (Negative) Urine Blood Negative /uL (Negative) Urine Nitrite Negative (Negative) Urine Bilirubin Negative (Negative) Urine Urobilinogen Normal mg/dL (Negative) Urine Leukocyte Esterase Negative /uL (Negative) Urine RBC 1 /hpf (0 - 4) Urine Microscopic WBC < 1 /HPF (0-5) Urine Squamous Epithelial Cells Few /hpf (<5) Urine Bacteria None seen /hpf (None Seen) Urine Glucose Normal mg/dL (Normal) Urine Opiates Screen Neg (NEGATIVE) Urine Fentanyl Screen Neg (NEGATIVE) Urine Barbiturates Screen Neg (NEGATIVE) Urine Phencyclidine Screen Neg (NEGATIVE) Urine Amphetamines Screen Neg (NEGATIVE) Urine Benzodiazepines Screen Neg (NEGATIVE) Urine Cocaine Screen Neg (NEGATIVE) Urine Cannabinoids Screen Neg (NEGATIVE) Total Bilirubin 1.1 mg/dL (0.2-1.0) Aspartate Amino Transferase (AST) 18 U/L (13-40) Alanine Aminotransferase (ALT) 25 U/L (7-40) Alkaline Phosphatase 77 U/L (46-116) B-Type Natriuretic Peptide 2.47 pg/mL (0-100) Total Protein 7.2 g/dL (5.7-8.2) Albumin 4.7 g/dL (3.2-4.8) Triglycerides Level 155 mg/dL (< 150) Cholesterol Level 224 mg/dL (< 200) LDL Cholesterol 149 mg/dL (< 100) HDL Cholesterol 60 mg/dL (40-59) Hepatitis B Surface Antigen Negative (Negative) Hepatitis C Antibody Negative (Negative) Test 01/26/25 20:40 01/26/25 17:38 01/26/25 16:31 Prothrombin Time 10.1 sec (9.3-11.8) Prothrombin Time INR 0.95 (0.9-1.15) Activated Partial Thromboplast Time 26.4 SEC (24.5-34.5) Troponin I High Sensitivity 3 ng/L (</=34) Blood Gas Specimen Type Arterial Blood Gas Sample Site Right radial Blood Gas Patient Temperature 37.0 Arterial Blood Date Drawn [id number] Arterial Blood pH 7.464 (7.350-7.450) Arterial Blood Partial Pressure CO2 36.2 mmHg (32.0-45.0) Arterial Blood Partial Pressure O2 76.1 mmHg (83.0-108.0) Arterial Blood HCO3 25.4 mmol/L (21.0-28.0) Arterial Blood Oxygen Saturation 95.9 % (94.0-98.0) Arterial Blood Base Excess 1.9 mmol/L (-2.0-3.0) Arterial Blood Oxyhemoglobin 94.7 % (94.0-98.0) Arterial Blood Carboxyhemoglobin 0.8 % (0.5-1.5) Arterial Blood Methemoglobin 0.4 % (0.0-1.5) [place]hi Test Modified Blood Gas Total Hemoglobin 14.70 g/dL (12.0-16.0) Blood Gas Modality Room air FiO2 % 21.0 D-Dimer, Quantitative < 0.19 mg/L FEU (0.0-0.49) Hemoglobin A1c 5.6 % A1C (<5.7) Phosphorus Level 3.6 mg/dL (2.4-5.1) Magnesium Level 2.2 mg/dL (1.6-2.6) C-Reactive Protein High Sensitivity 1.24 mg/dL (<1.0) Lipase 28 U/L (12-53) Vitamin B12 Level 269 pg/mL (211-911) Vitamin D 25-Hydroxy 23.6 ng/mL (30.0-100) Thyroid Stimulating Hormone (TSH) 3.98 uIU/mL (0.55-4.78) Other Laboratory Tests 01/28/25 06:26 Brief Hx & Hospital Course: This is a 49-year-old female with past medical history of gestational diabetes and heart failure 20 years back, presented to the ER with chief complain of shortness of breath. Patient reported difficulty in breathing since last 3 weeks, which increases on lying down and somewhat relieved on sitting up. She also complains of chest tightness since last 1 month, described as substernal and constant. She complains of associated difficulty in sleeping and nausea. Patient also reported diarrhea, since last 1 week, she had 8-9 episodes of bowel movements daily, foul-smelling stool, no blood seen. She also complained of abdominal distention, fullness and loss of appetite. Denies abdominal pain, fever, travel outside country, eating from food truck. PMHx: Gestational diabetes and questionable peripartum heart failure PSHx: 5 sections, cholecystectomy, hysterectomy due to endometriosis Social history: Occasional alcohol use. Methamphetamine use, reportedly quit 2 months ago. Lives in house with mother. Full code. Next of kin mother Home medication: Hydroxyzine Allergic history: Penicillin, Vicodin Patient was evaluated for exacerbation of heart failure given her symptoms of orthopnea. Chest x-ray revealed a cardiomegaly. Also, troponin and EKG was done to rule out ACS, because shortness of breath could be an angina equivalent symptom for females. Echocardiogram reveals LV ejection fraction 65%, LVH and no other abnormalities. Cardiology was consulted and recommended outpatient follow up. Patient was treated with IV Lasix. For her acute gastroenteritis she was treated with IV fluid and IV ceftriaxone and metronidazole, which resolved her diarrhea. Stool studies were ordered. However. chest CT revealed 9.8 mm left lower lung nodule, the patient was counseled regarding the potential for malignancy of the nodule and was advised to follow up outpatient with a programming development project manager. Vitamin-D deficiency was treated. Due to her morbid obesity, patient was counseled to adopt healthy lifestyle. On the day of discharge, patient was hemodynamically stable, verbalized understanding of the treatment plan and necessity to follow up with the programming development project manager and washer hand. Examination Pt is lying on bed General Appearance: Alert, Oriented X3, Cooperative, Mild distress HEENT: Atraumatic, Mucous membranes moist/pink on the day of discharge patient was hemodynamically stable, was breathing comfortably on room air. Was tolerating diet. The patient verbalized understanding of Respiratory: Clear to auscultation, Normal air movement, No added sounds Cardiovascular: Regular rate, Normal S1, Normal S2, No murmurs Abdominal/ : Active bowel sounds, Soft, no distention, no tenderness Extremities: No edema, Normal pulses, No tenderness/swelling Skin: No Significant rash, except past surgical scars Neuro: Normal speech, sensorimotor deficits none Psych/Mental Status: Mental status NL, Mood NL Nurse was there as director camp during examination Case discussed with Operations or Procedures Ph: [phone] DIAGNOSTIC IMAGING Diagnostic Imaging Report : [id number] Signed PATIENT: LAST POLLOCK ACCT: [id number] UNIT: [id number] : 1975 LOC: [facility] ROOM / BED: [facility] / A AGE / SEX: 49 / F ADM STATUS: ADM IN SERVICE 1023 ORDERING PHYSICIAN: TESFAYE SIMPSON RESIDENT PROCEDURE(s): CX2CT - CHEST WITHOUT CONTRAST REASON: SOB, h/o meth use ORDER NUMBER(s): [id number], ACCESSION NUMBER(s): [id number] Procedure: CT CHEST WITHOUT CONTRAST Reason for study/Clinical History: SOB, h/o meth use Comparison Study: None Exam Date: 01/28/2025 10:44 AM TECHNIQUE: Multidetector CT of the chest was performed from the lung apices to the upper abdomen without the use of intravenous contract. Axial, coronal and sagittal multiplanar reformats were performed. Radiation Dose Information: CT Dose: CTDI volume is 17.89 mGy. Dose-length product is 2.54 mGy*cm The dose indicators for CT are the volume Computed Tomography (CT) Dose Index (CTDIvol) and the Dose Length Product (DLP), and are measured in units of mGy and mGy-cm, respectively. These indicators are not patient dose, but values generated from the CT scanner acquisition factors. The report includes radiation exposure data for exposures received during this examination. FINDINGS: Lower neck: Normal thyroid. Lungs: 9.8 mm nodule left lower lobe. Nodule has a volume of 488 0.1 mm cubed. Lung-RADS= 4A suspicious. Recommend 3-month LD CT ; PET scan CT may be used lesion is equal to or greater than 8 mm. Heart/Vascular Structures: Normal heart size. No pericardial effusion. Lymph Nodes: No adenopathy Pleura: No pleural effusion or significant pneumothorax. Musculoskeletal: No acute osseous abnormality. Soft tissues: Normal. Upper abdomen: Limited portions of the upper abdomen are unremarkable. IMPRESSION: 1. Solitary 9.8 mm nodule left lower lobe. 2. Lung rads 4A, BISMARK=(<= -950HU) 0% 3. According to Fleischner society statement there is no significant emphysema FL AA less than 6% 4. CT protocol is not optimized or LA analysis. Do not rely on LA a -950 HU values for diagnosis. HS:Y Radiation optimization: All CT scans at this facility use at least one of these dose optimization techniques: automated exposure control mA and/or kV adjustment per patient size (includes targeted exams where dose is matched to clinical indication) or iterative reconstruction. ATED BY: RHEA TINAJERO Jr., DO DICTATED DATE/TIME: 01/28/251251 SIGNED BY: RHEA TINAJERO Jr., DO SIGNED DATE/TIME: 01/28/251251 CC: [address] [place] [address] Ph: [phone] DIAGNOSTIC IMAGING Diagnostic Imaging Report : [id number] Signed PATIENT: CARITO POLLOCK ACCT: [id number] UNIT: [id number] : 1975 LOC: ER ROOM / BED: / AGE / SEX: 49 / F ADM STATUS: REG ER SERVICE 17 ORDERING PHYSICIAN: AHSAN HASTINGS DO PROCEDURE(s): CXRP - CHEST PORTABLE REASON: sob ORDER NUMBER(s): [id number], ACCESSION NUMBER(s): [id number] CHEST RADIOGRAPH Indication: sob Technique: Single frontal view of the chest was obtained Comparison: None FINDINGS: Lines and Tubes: None Lungs: No focal consolidation. Pleura: No effusion. No pneumothorax. Cardiomediastinal contours: Unremarkable Bones: No acute osseous abnormality. IMPRESSION: 1. No acute cardiopulmonary disease. ATED BY: RHEA TINAJERO Jr., DO DICTATED DATE/TIME: 01/26/25 171 SIGNED BY: RHEA TINAJERO Jr., DO SIGNED DATE/TIME: 01/26/25 1718 CC: Condition at Discharge: Stable Final Diagnosis/Problems List Ruled out structural heart disease Left lung pulmonary nodule measuring 9 mm History of heart failure Morbid obesity Acute gastroenteritis History of gestational DM Acute systolic vs diastolic heart failure, likely (pending LVEF) Questionable History of peripartum cardiomyopathy Acute gastroenteritis Hyperglycemia Remote history of GDM Hyperventilation likely due to obesity Respiratory alkalosis on ABG Morbid obesity Vitamin-D deficiency Discharge Disposition: Home Discharge Instruct/Medications Diet: Consistent carbohydrate, Cardiac 2g Na,low cholest Activity: No Restrictions, As Tolerated Follow Up/Referral: Follow up with PCP and DC clinic in 1 week Outpatient follow up with programming development project manager due to lung nodule. Follow up with washer hand outpatient. Scheduled Atorvastatin Calcium (Atorvastatin Calcium), 20 MG PO HS Ergocalciferol (Vitamin D 68833 Unit), 50,000 UNIT PO Q7D Furosemide (Furosemide), 40 MG PO DAILY Scheduled PRN Albuterol Sulfate (Ventolin Mdi), 2 PUFF IN Q6HP PRN Hydroxyzine Hcl (Hydroxyzine Hcl), 25 MG PO HSPRN PRN for ANXIETY, (Reported) Discharge Statement: "Patient was advised to return to the ER or call 911 if any headaches, dizziness, shortness of breath, chest pain, abdominal pain, bleeding, fevers, or worsening of medical condition. Patient was counseled about treatment plan, medications, possible side effects, patientverbalized understanding. All questions were answered to the best of my ability. This discharge took greater then 30 minutes in planning, reviewing documentation, counseling the patient, and discussing with other team members." ASSESSMENT ASSESSMENT Assessment Ruled out structural heart disease left lung pulmonary nodule measuring 9 mm History of heart failure Morbid obesity Acute gastroenteritis History of gestational DM Date of Service: Jan 28, 2025 Billing Provider: RADHA BEGUM MD Common Visit Codes: 89358-UNR/OBS DISCH DAY >30min JOSE GUADALUPE CHANG Jan 28, 2025 13:45 RADHA BEGUM MD Feb 02, 2025 20:12
[2025-01-28] MEDS ORDERED: FURO40TA4 PO (13:56)
[2025-01-28] MEDS ORDERED: ERGO1CAP23 PO (13:56)
[2025-01-28] MEDS ORDERED: ATOR20TA50 PO (13:56)
[2025-01-28] MEDS ORDERED: ALBUAER3 IN (13:56)
[2025-01-28 15:26] VITALS: BP 119/77; PULSE 92; RESP 18; TEMP 37.3; O2SAT 62
[2025-01-28] MEDS ORDERED: ATORVASTATIN 20 MG TAB PO SCH (22:00)
--- NOTE | 2025-01-28 23:37 | DVHPN2 ---
Progress Note - Dictate Date Seen: Jan 28, 2025 Has the PT tested + for MRSA If YES, has PT been informed?: No Medical Necessity Reason Pt with a Central, PICC or Fol: No Subjective Patient was seen and evaluated in follow up. Patient has no new complaints at this time. Patient denies any cardiac symptoms. Patient is cardiac stable for discharge. Telemetry reviewed. vital signs Vital Sign Date Time Temp Pulse Resp B/P (MAP) Pulse Ox O2 Delivery O2 Flow Rate FiO2 01/28/25 15:26 37.3 92 18 62 01/28/25 13:30 90/56 (67) 01/28/25 08:00 Room Air* 0 21 Total Intake and Output 01/27/25 01/27/25 01/28/25 15:00 23:00 07:00 Intake Total 100 ml 1250 ml 300 ml Balance 100 ml 1250 ml 300 ml objective General: Patient alert and oriented X3 HEENT: Normocephalic, atraumatic, moist mucous membranes Respiratory: Distant breath sounds, no crackles or wheeze heard Cardiovascular: S1, S2, S3 heard with no associated murmurs Abdomen: Mild abdominal distention, without tenderness. Extremities: no edema, no cyanosis, no tenderness with a positive pulses Skin: no significant rash except for surgical scars Neurological: no sensory/ motor deficits Nurse was there as a steel rule die maker apprentice during the examination laboratory and microbiology Laboratory Tests 01/28/25 06:26 Test 01/28/25 06:26 Range/Units Serum Glucose 119 H 74-106 mg/dL Problem List Rule out structural heart disease. 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 Morbid obesity. Acute gastroenteritis. HX of gestational DM, A1c is 5.6. Assessment/Plan Continued all current supportive medical care. DVT prophylactics. Diuretics with Lasix. Lipitor. IV antibiotics as ordered. Additional plan as per the hospital course. Plan discussed with: Patient ASHLEY MCDONNELL MD Jan 28, 2025 17:18
== END 2025-01-28 15:48 | disposition home or self-care (01) | DRG 194 ==
LOC: ER 16:04 → OVERFLOW 23:19 → TELE-WESTW 01-27 03:00
PROVIDERS: ADMIT Internal Medicine Geriatric Medicine; ATTEND Internal Medicine Geriatric Medicine
DX: I50.41 Acute combined systolic (congestive) and diastolic (congestive) heart failure (principal); E87.3 Alkalosis; E66.2 Morbid (severe) obesity with alveolar hypoventilation; A04.9 Bacterial intestinal infection, unspecified; R73.9 Hyperglycemia, unspecified; E55.9 Vitamin D deficiency, unspecified; F41.9 Anxiety disorder, unspecified; Z68.36 Body mass index [BMI] 36.0-36.9, adult; Z87.891 Personal history of nicotine dependence; Z82.49 Family history of ischemic heart disease and other diseases of the circulatory system; Z90.49 Acquired absence of other specified parts of digestive tract; Z98.891 History of uterine scar from previous surgery; Z79.899 Other long term (current) drug therapy; Z90.710 Acquired absence of both cervix and uterus; Z86.32 Personal history of gestational diabetes; Z88.0 Allergy status to penicillin; Z88.8 Allergy status to other drugs, medicaments and biological substances; Z68.39 Body mass index [BMI] 39.0-39.9, adult
CPT/HCPCS: 36415; 36600; 71045; 71250; 80048; 80053; 80061; 80307; 81001; 82306; 82607; 82805; 83036; 83690; 83735; 83880; 84100; 84443; 84484; 85025; 85379; 85610; 85730; 86141; 86803; 87340; 87426; 87804; 93005; 93306; 96374; G0378; J3490